=== PATIENT | female | born 1940 ===

== ENCOUNTER → 2017-09-24 | Outpatient (CLI) | payer OTHER ==
[~2017-09-24] MED LIST: AMLODIPINE BES2.5 MG PO; ANTIVERT12.5 MG PO; CRESTOR5 MG PO; FIORICET 50-301 EACH PO
== END | disposition home or self-care (01) ==
LOC: NUCLEAR 13:49
DX: I65.22 Occlusion and stenosis of left carotid artery (principal)

== ENCOUNTER → 2020-07-15 | Outpatient (CLI) | payer OTHER ==
[~2020-07-15] MED LIST changes: +NABUMETONE750 MG PO; +VOLTAREN100 GM TOP
== END | disposition home or self-care (01) ==
LOC: MRI 11:55
PROVIDERS: ATTEND Physical Medicine & Rehabilitation
DX: G93.89 Other specified disorders of brain (principal); R10.84 Generalized abdominal pain
CPT/HCPCS: 70551; 72141